=== PATIENT | female | born 1940 | race Caucasian/White ===

== ENCOUNTER 2017-09-10 11:12 | Emergency (ER) | payer MEDICARE, OTHER ==
[~2017-09-10] VITALS: Ht 157.5 cm; Wt 80.7 kg
[2017-09-10 11:45] LABS: URINE BILIRUBIN NEGATIVE (Negative); URINE BLOOD TRACE (Negative); URINE CLARITY CLEAR; URINE COLOR YELLOW; URINE GLUCOSE-RANDOM NEGATIVE (Negative); URINE KETONES NEGATIVE (Negative); URINE LEUKOCYTES-REFLEX NEGATIVE (Negative); URINE NITRITE-REFLEX NEGATIVE (Negative); URINE PROTEIN NEGATIVE (Negative); URINE SPECIFIC GRAVITY 1.015 (1.005-1.030); URINE UROBILINOGEN 0.2 E.U./dl (0.2-1.0)
[2017-09-10 11:53] LABS: ABSOLUTE BASOPHILS 0.1 thou/uL (0.0-0.2); ABSOLUTE EOSINOPHILS 0.2 thou/uL (0.0-0.7); ABSOLUTE LYMPHOCYTES 2.2 thou/uL (0.8-5.3); ABSOLUTE MONOCYTES 0.7 thou/uL (0.0-1.2); ABSOLUTE NEUTROPHILS 3.7 thou/uL (1.6-8.1); BASOPHILS 0.8 %; EOSINOPHILS 2.8 %; HEMATOCRIT 41.8 % (37.0-47.0); HEMOGLOBIN 14.1 gm/dL (12.0-15.0); LYMPHOCYTES 31.9 %; MCH 30.7 pg (26.0-34.0); MCHC 33.6 g/dL (28.0-37.0); MCV 91.4 fL (80.0-100.0); MONOCYTES 10.6 %; MPV 8.9 fl. (7.2-11.1); NUCLEATED RBCS 0 /100WBC; PLATELET COUNT* 242 thou/uL (150-400); POLYS 53.9 %; RBC 4.57 mil/uL (4.20-5.00); RDW-CV 13.7 % (10.5-14.5); WBC 6.9 thou/uL (4.0-11.0)
[2017-09-10 12:02] LABS: ANION GAP 1 mmol/L (7-16); BUN 18 mg/dL (7-18); CHLORIDE 107 mmol/L (98-107); CO2 30 mmol/L (21-32); CREATININE 0.7 mg/dL (0.6-1.3); GLUCOSE 95 mg/dL (70-99); POTASSIUM 3.9 mmol/L (3.5-5.1); SODIUM 138 mmol/L (136-145)
[2017-09-10 12:09] LABS: ALBUMIN 3.4 g/dL (3.4-5.0); ALKALINE PHOSPHATASE 78 U/L (46-116); LIPASE 229 U/L (73-393); SGOT 26 U/L (15-37); SGPT 36 U/L (30-65); TOTAL BILIRUBIN 0.4 mg/dL (<0.1-1.0); TOTAL PROTEIN 7.1 g/dL (6.4-8.2); TROPONIN-I LEVEL <0.06 ng/mL (<0.06)
[2017-09-10 13:36] VITALS: BP 115/94
--- NOTE | 2017-09-10 14:32 | EKG ---
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: Ashanti ROMAN : 1940 Requested By: Guzman Barker Order Number: [id number] MD: Luis Boateng Measurements Intervals [place] Rate: 65 P: 58 WV: 196 QRS: -58 QRSD: 95 T: 47 QT: 419 QTc: 436 Interpretive Statements Sinus rhythm RSR' in V1 or V2, right VCD or RVH Inferior infarct, old Consider anterior infarct Compared to ECG 10/18/2005 07:46:14 Right ventricular hypertrophy now present RSR' in V1 or V2 now present Myocardial infarct finding now present Electronically Signed On 09-10-2017 14:32:37 CDT by Luis Boateng [email or web address] <ELECTRONICALLY SIGNED> By: Luis Boateng MD, FACC 09/10/17 1432 1154 1154 Luis Boateng MD, FAC /EPI
== END 2017-09-10 13:43 | disposition home or self-care (01) ==
LOC: M.ERS 11:12
PROVIDERS: Family Medicine
DX: R10.31 Right lower quadrant pain (principal); J45.909 Unspecified asthma, uncomplicated; E03.9 Hypothyroidism, unspecified; M81.0 Age-related osteoporosis without current pathological fracture; Z88.6 Allergy status to analgesic agent; Z88.1 Allergy status to other antibiotic agents; Z88.0 Allergy status to penicillin

== ENCOUNTER → 2020-02-04 | Outpatient (CLI) | payer MEDICARE, OTHER ==
--- NOTE | 2020-02-11 11:07 | PATH ---
[address] [address] PATHOLOGY RPT PROCEDURE Name: ROMANA JHA Tesha Room: [facility]#: [id number] Admission: 02/04/20 Date of : 40 Discharge: Report #: [id number] Path Case #: [id number] [facility] Accession Number: [id number] . 01 Material submitted: . PART A: breast - RIGHT AXILLARY NODE. Modifiers: right PART B: breast - RIGHT BREAST MASS. Modifiers: right . 01 Clinical history: . US MAMMOTOME BX BILATERAL BREAST ABNORMAL MAMMO A. 1.47 x 1.76 X 1.74 CM B. 3.55 X 2.79 X 1.44 CM, 9:00, 8-9 CM FROM NIPPLE. . 02 Diagnosis: A. 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 SEE COMMENT. . B. Right breast mass, 9:00, 8-9 cm from nipple, ultrasound-guided Mammotome biopsy: - INFILTRATING DUCTAL ADENOCARCINOMA, HIGH GRADE, SPANNING AT LEAST 15 MM. SEE COMMENT. (BRUNO:abena; 02/05/2020) . . Surgical Pathology Cancer Case Summary . Protocol posting date: April 2019 . INVASIVE CARCINOMA OF THE BREAST: Biopsy . Procedure ___ Other (specify): Ultrasound-guided Mammotome biopsy . Specimen Laterality ___ Right . Tumor Site ___ Clock position: 9 o'clock ___ Distance from nipple: 8-9 cm . Tumor Size ___ Greatest dimension of largest invasive focus >1 mm: at least 15 mm . Histologic Type ___ Invasive carcinoma of no special type (ductal, not otherwise specified) . Histologic Grade (Edmund Histologic Score) [place] [address] PATHOLOGY RPT PROCEDURE Name: ROMANA JHA Room: [facility]#: [id number] Admission: 02/04/20 Date of : 40 Discharge: Report #: [id number] Path Case #: [id number] . Glandular (Acinar)/Tubular Differentiation ___ Score 3 (<10% of tumor area forming glandular/tubular structures) . Nuclear Pleomorphism ___ Score 3 (vesicular nuclei, often with prominent nucleoli, exhibiting marked variation in size and shape, occasionally with very large and bizarre forms) . Mitotic Rate ___ Score 3 . Overall Grade ___ Grade 3 (scores of 8 or 9) . Ductal Carcinoma In Situ (DCIS) ___ Cannot be excluded . Lymphovascular Invasion ___ Indeterminate . Microcalcifications ___ Not identified . Ancillary Studies: Biomarker Studies ___ Pending on block B1 QMS 02/05/2020 1433 Local . 02 Comment: In specimen A, there is no definite evidence of extranodal extension by the malignancy. In specimen B, greater than 95% of the submitted tissues are involved by malignancy. Breast tumor profile studies are pending on block B1 and will be the subject of an addendum report. Specimens A and B reviewed with Dr. Lucien Allen, who agrees with the diagnoses. Daija (acting [facility] Breast Navigator) notified at approximately 11:30 on 02/05/2020. (BRUNO:abena; 02/05/2020) . 02 Addendum: . Special studies report received from [facility], [address] [place] [address], [address], [place], [address], on case [id number], labeled with their number [id number], dated 02/10/2020. . Breast/Prognostic Marker Analysis . Specimen Site: Right Breast, Mass, 9:00, Biopsy, Breast Cancer Specimen ID #: [id number] [place] [address] PATHOLOGY RPT PROCEDURE Name: ROMANA JHA Room: [facility] Col[place]#: [id number] Admission: 02/04/20 Date of : 40 Discharge: Report #: [id number] Path Case #: [id number] . ER (Estrogen Receptor) Absent/Negative Percent: 0.00 Analysis: Manual Comments: Comment: Internal and external controls are appropriately positive. . OH (Progesterone Receptor) Absent/Negative Percent: 0.00 Analysis: Manual Comments: Comment: Internal and external controls are appropriately positive. . HER2 Not Over-Expressed Score: 1+ Analysis: Manual . Ki-67 High Proliferation Percent: 65.00% Analysis: Manual . Time to Fixation (Cold Ischemic Time): 9 minutes Duration of Fixation: 10 hours 34 minutes Type of Fixative: 10% Neutral Buffered Formalin . Comments: ER/PgR testing at [facility]. is performed in compliance with the ASCO/CAP Clinical Practice Guidelines. If the result for ER is less than 1% it is reported as Negative; if the ER result is 1-10% it is reported as Low Positive; if the ER result is greater than 10% it is reported as Positive. If the result for PgR is less than 1% it is reported as Negative; if the PgR result is equal to or greater than 1%, it is reported as Positive. . REFERENCE: Jenelle KH, Jessica GARCIA, Venu M, et al. Estrogen and progesterone receptor testing in breast cancer. ASCO/CAP guideline update. Arch Pathol Lab Med. 2020; 144:545-563. . Whole slide image capture is performed using SitScape (Corpsolv) platform. Image analysis, if ordered, is performed using Cellartis software. . at [facility]. [place] [address] PATHOLOGY RPT PROCEDURE Name: ROMANA JHA Room: [facility]#: [id number] Admission: 02/04/20 Date of : 40 Discharge: Report #: [id number] Path Case #: [id number] Surgical Pathologist . Methodology The HER2 Receptor protein expression is analyzed using the [place] HER2 rabbit monoclonal antibody (clone 4B5). This assay is used for diagnostic determination of the HER2 protein over-expression in paraffin embedded, formalin fixed breast cancer tissue on the [place] Benchmark. The specimen is processed using a secondary antibody-HRP conjugate detection system. The membrane staining of the tumor is determined either by manual score or image analysis. This antibody is intended for in vitro diagnostic use. The score is reported as 0, 1+, 2+, or 3+. This test is used for clinical purposes. . A rabbit monoclonal antibody (clone SP1) that recognized the Estrogen Receptor is used to perform immunohistochemistry on routinely fixed (formalin) paraffin embedded tissue on the [place] Benchmark. The specimen is processed using a secondary antibody-HRP conjugate detection system. The percentage of stained tumor nuclei is determined either manually or by image analysis. This test is intended for in vitro diagnostic use. This test is used for clinical purposes. . A rabbit monoclonal antibody (clone 1E2) that recognized the Progesterone Receptor is used to perform immunohistochemistry on routinely fixed (formalin) paraffin embedded tissue on the [place] Benchmark. The specimen is processed using a secondary antibody-HRP conjugate detection system. The percentage of stained tumor nuclei is determined either manually or by image analysis. This test is intended for in vitro diagnostic use. This test is used for clinical purposes. . A rabbit monoclonal antibody (clone 30-9) that recognized Ki67 is used to perform immunohistochemistry on routinely fixed (formalin) paraffin embedded tissue on the [place] Benchmark. The specimen is processed using a secondary antibody-HRP conjugate detection system. The percentage of stained tumor nuclei is determined either manually or by image analysis. This test is intended for in vitro diagnostic use. This test is used for clinical purposes. . Intended Use: This antibody is intended for in vitro diagnostic (IVD) use. HER2 (4B5) is a rabbit monoclonal antibody intended for the semi-quantitative detection of HER2 antigen in sections of formalin-fixed, paraffin embedded normal and neoplastic tissue. . This antibody is intended for in vitro diagnostic (IVD) use. Estrogen Receptor (ER) (SP1) is a rabbit monoclonal antibody (IgG) that is intended for the qualitative detection of estrogen receptor (ER) antigen in sections of formalin-fixed, paraffin-embedded tissue. ER is a rabbit monoclonal antibody that recognizes human estrogen [place] [address] PATHOLOGY RPT PROCEDURE Name: ROMANA JHA Room: [facility]#: [id number] Admission: 02/04/20 Date of : 40 Discharge: Report #: [id number] Path Case #: [id number] This antibody is intended for in vitro diagnostic (IVD) use. Progesterone Receptor (OH) (1E2) is a rabbit monoclonal antibody (IgG) that is intended for the qualitative detection of progesterone receptor (OH) antigen in sections of formalin fixed, paraffin embedded tissue. OH is a rabbit monoclonal antibody that recognizes the A and B forms of the human progesterone receptor. . This antibody is intended for in vitro diagnostic (IVD) use. Ki-67 (30-9) is a rabbit monoclonal antibody (IgG) directed against C-terminal portion of Ki-67 antigen. Staining for Ki-67 can be used to aid in assessing the proliferative activity of normal and neoplastic tissue. Ki-67 is a nuclear protein expressed in proliferating cells. During the cell cycle, the Ki-67 antigen is present in the G1, S, G2 and M phase but is absent in the G0 (quiescent phase). . . Disclaimer: This Test was performed by [facility]. at [facility], [address]. . [facility] is a business unit of [facility]. a wholly-owned subsidiary of [facility] [place]. . This assay has not been validated on decalcified tissues. Results should be interpreted with caution if this specimen was decalcified given the likelihood of false negativity on decalcified specimens. . Any image(s) that accompany this report is/are a manufacturer's service representative image(s) only and should not be used to render a diagnosis. . This interpretation is contingent on the specimen and the clinical information received. . For any special tests/stains performed, known positive cells or tissues are tested with each marker and examined to ensure positivity. Positive and negative internal controls, if present, react appropriately. . This analysis is an adjunct to the evaluation of the referring physician and does not represent a final diagnosis. . The immunohistochemistry tests performed at [facility]. were validated on tissue fixed in 10% neutral buffered formalin. The performance characteristics of the tests performed on tissue processed in other fixatives is not known. . HER2 testing at [facility] [employer] is performed in compliance with the 2018 updated ASCO/CAP Clinical Practice Guideline Focused Update. If the result is EQUIVOCAL (2+), it must be confirmed by [address] [address] PATHOLOGY RPT PROCEDURE Name: ROMANA JHA Room: [facility]#: [id number] Admission: 02/04/20 Date of : 40 Discharge: Report #: [id number] Path Case #: [id number] an alternative assay such as FISH or Dual STEVEN. REF: Crystal OJEDA, ISIDRA Lopez et al: Human Epidermal Growth Factor Receptor 2 Testing in Breast Cancer: ASCO/CAP Clinical Practice Guideline Focused Update. J Clin Oncol 36:4077-8312, 2018. . HER2 and ER/OH ASCO/CAP guidelines require fixation in neutral buffered formalin for a minimum of 6 and a maximum of 72 hours. Fixation times less than 6 hours may not adequately preserve cell proteins. Fixation times longer than 72 hours may cause excess cross-linking of proteins reducing the antigen available for staining. Either scenario can cause reduced staining; hence false negative results are possible and should be considered for these situations if the HER2 IHC score is less than 3+ or ER or OH is negative (no staining or <1% positive). It is recommended that specimens fixed longer than 72 hours with HER2 IHC scores less than 3+ be confirmed by HER2 FISH or Dual STEVEN. The time from biopsy/excision to fixation in formalin (cold ischemic time) must be less than 1 hour. Time to fixation (cold ischemic time) greater than 1 hour should be interpreted with caution. HER2 testing, mainly HER2 by FISH, is particularly vulnerable since excessive cold ischemic time results in preferential loss of HER2 probe signals that may lead to false negative results. . SCORE STAINING PATTERN IN TUMOR CELLS INTERPRETATION RESULTS 0 No staining observed or incomplete, faint membrane staining in less than or equal to 10% of tumor cells. Negative 1+ Incomplete, faint membrane staining in greater than 10% of tumor cells. Negative 2+ Weak to moderate complete membrane staining observed in greater than 10% of tumor cells. Equivocal* *Must be confirmed by alternative assay (IHC/FISH/Dual STEVEN) 3+ Intense, complete membrane staining in greater than 10% of tumor cells. Positive . A complete copy of the report is on file. . Professional and Technical services performed by [facility]. at [address], [place] [address]. . (BRUNO:merle 02/11/2020) . [place]/02/11/2020 Addendum Electronically Signed by Adrian Mcdonald MD, Pathologist . 02 [place] [address] PATHOLOGY RPT PROCEDURE Name: ROMANA JHA Room: [facility]#: [id number] Admission: 02/04/20 Date of : 40 Discharge: Report #: [id number] Path Case #: [id number] Electronically signed: . Adrian Mcdonald MD, Pathologist NPI- [id number] . 01 Gross description: . A. The specimen is received in formalin, labeled "Romana Jha, right axillary node". Received is a single needle core of pale holley soft tissue measuring 1.3 cm in length by 0.1 cm in diameter. The specimen is submitted entirely in cassette A1. . B. The specimen is received in formalin, labeled "Romana Jha, right breast 9:00 8-9 cm from nipple". Received are multiple needle cores of fibrofatty tissue measuring 2.0 x 0.8 x 0.2 cm in aggregate dimensions. The specimen is submitted entirely in cassettes B1 through B3. The cold ischemic time is 9 minutes. The total formalin fixation time is 10 hours and 34 minutes. (CAA; 02/04/2020) QAC/QAC 02/04/2020 1609 [facility] . 02 Pathologist provided ICD-10: C77.3, C50.911 . 02 CPT . 356501, 149843 Specimen Comment: A courtesy copy of this report has been sent to [phone] Specimen Comment: Report sent to Performed at: [address], [place], [place] [address] MD Arnel Duong MD Phone: [phone] Performed at: [facility] [address], [place], [place] [id number] MD Adrian Mcdonald MD Phone: [phone]
== END | disposition home or self-care (01) ==
LOC: M.ULTRA 09:28
PROVIDERS: ATTEND Surgery
DX: C50.411 Malignant neoplasm of upper-outer quadrant of right female breast (principal); C77.3 Secondary and unspecified malignant neoplasm of axilla and upper limb lymph nodes; R59.0 Localized enlarged lymph nodes; Z88.0 Allergy status to penicillin; Z88.8 Allergy status to other drugs, medicaments and biological substances

== ENCOUNTER → 2020-02-08 | Outpatient (CLI) | payer MEDICARE, OTHER ==
[2020-02-08 10:48] LABS: CREATININE 0.9 mg/dL (0.6-1.3)
== END ==
LOC: M.MRI 10:17 → M.LAB 10:30 → M.MRI 11:30
PROVIDERS: ATTEND Family Medicine
DX: N63.11 Unspecified lump in the right breast, upper outer quadrant (principal); N64.89 Other specified disorders of breast

== ENCOUNTER → 2020-02-15 | Day surgery (SDC) | payer MEDICARE, OTHER ==
[2020-02-15 08:24] LABS: HEMATOCRIT 42.6 % (37.0-47.0); HEMOGLOBIN 14.4 gm/dL (12.0-15.0); MCH 30.4 pg (26.0-34.0); MCHC 33.7 g/dL (28.0-37.0); MCV 90.3 fL (80.0-100.0); RBC 4.72 mil/uL (4.20-5.00); RDW-CV 13.2 % (10.5-14.5); WBC 7.6 thou/uL (4.0-11.0)
[2020-02-15 08:28] LABS: CALCIUM 8.7 mg/dL (8.5-10.1); CREATININE 0.8 mg/dL (0.6-1.3); POTASSIUM 3.8 mmol/L (3.5-5.1)
--- NOTE | 2020-02-15 15:15 | EKG ---
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: : 1940 Requested By: Kelsey Alfaro Order Number: [id number] Reading MD: Roel Calderon Measurements Intervals [place] Rate: 59 P: 55 [place]: 196 QRS: -57 QRSD: 89 T: 27 QT: 430 QTc: 426 Interpretive Statements Sinus rhythm Left anterior fascicular block Borderline T wave abnormalities Compared to ECG 09/10/2017 11:54:11 Left anterior fascicular block persists T-wave abnormality now present Right ventricular hypertrophy no longer present Myocardial infarct finding no longer present Electronically Signed On 02-15-2020 15:15:28 DEFENSIVE DRIVING INSTRUCTOR by Roel Calderon [email or web address] <ELECTRONICALLY SIGNED> By: Roel Calderon MD, FACC 02/15/20 1515 5 5 Roel Calderon MD, FAC /EPI
--- NOTE | 2020-02-16 07:22 | OP ---
[address] [address] OPERATIVE REPORT Name: VERONICA JHA Room: [facility]#: [id number] Admission: 02/15/20 Attend Phys: Kelsey Alfaro DO Discharge: Date of : 40 Report #: [id number] THIS REPORT FOR: cc: Tanner Borges MD, Tuongvan T. 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 FINDINGS: Right internal jugular anatomy was normal. SURGEON: Kelsey Alfaro DO COSURGEON: Jairo Mallory DO, PGY-1. ETHYLBENZENE CRACKING SUPERVISOR: None. PROCEDURE PERFORMED: Left internal jugular ultrasound and fluoroscopy-guided chemo port placement with surgeon interpretation of images. ANESTHESIA: LMA and local. ESTIMATED BLOOD LOSS: 2 mL. DRAINS: None. SPECIMENS: None. COMPLICATIONS: None. CONDITION: Stable. DISPOSITION: PACU to home. Fluoroscopy time was 17 seconds. HISTORY OF PRESENT ILLNESS: The patient is a very pleasant 79-year-old female, who presented to my office last week with a change in her right breast. 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 She will require chemo. She was then consented for chemo port placement. Risks discussed included bleeding, infection, pain, scar formation, injury to lung, need for [facility] [address] [place] [address] OPERATIVE REPORT Name: VERONICA JHA Room: [facility]#: [id number] Admission: 02/15/20 Attend Phys: Kelsey Alfaro DO Discharge: Date of : 40 Report #: [id number] explantation, and risks of general anesthesia. The patient understood these risks and elected to proceed. DESCRIPTION OF PROCEDURE: The patient was brought to the operating room. She was laid supine on the operating room table. SCDs were placed on bilateral lower extremities. Ancef was given in the perioperative period. General LMA anesthesia was induced by Anesthesia without difficulty. Timeout was performed to verify the patient and procedure. Left neck and chest were prepped and draped in the standard sterile fashion. Ultrasound was used to visualize the left internal jugular; it was widely patent. A 10 mL of 0.5% Marcaine mixed with 1% lidocaine were injected over the area of the left IJ. Then, utilizing ultrasound for guidance, the left internal jugular was accessed with one pass of the needle. Wire was passed without difficulty. Needle was removed. Ultrasound was again used to verify that the wire was in the left internal jugular. Ultrasound was then handed off. Fluoroscopy was brought onto the field and the wire was confirmed to be in the superior vena cava. A 15 blade was then used to create a pocket in the left infraclavicular area. Cautery was used for hemostasis. Then, using a combination of blunt and cautery dissection, the pocket was made large enough for the subcutaneous port placement. An 11 blade was utilized to make a skin oscar at the site of the wire insertion. The dilator and the breakaway catheter were then introduced over the wire. The wire and the dilator were removed. Chemo port tubing was then introduced through the breakaway catheter without difficulty. Breakaway catheter was removed. Fluoroscopy was returned onto the field. Tubing was confirmed to be in the superior vena cava. The tubing was withdrawn until the tip was clearly visualized at the atriocaval junction. Chemo port tubing was then tunneled into our previously created subcutaneous pocket. Tubing was trimmed to the appropriate length and was placed onto the subcutaneous port without difficulty. The port was accessed and we had excellent draw and flush. The tubing and the port were vigorously irrigated with injectable saline. The port was then locked with 3 mL of premixed heparin solution. The port was then sutured into place on the right and left upper corners with a 2-0 Prolene stitch. Subcutaneous pocket was then closed in a layered fashion using deep and superficial stitches of 3-0 Vicryl in an inverted interrupted fashion. Skin wound was closed with a running 4-0 Monocryl. Skin was then cleansed and the skin wounds at the neck and the left chest were covered with Dermabond. The patient was then allowed to awaken from anesthesia, was extubated and transported to the recovery room with no further difficulties. Fluoro time was 17 seconds. Chest x-ray will be followed in the recovery room. <ELECTRONICALLY SIGNED> By: Kelsey Alfaro DO 02/16/20 0722 1041 1054Cvivian Alfaro DO /wendy
== END | disposition home or self-care (01) ==
LOC: M.SUR 06:35
PROVIDERS: ATTEND Surgery
DX: Z45.2 Encounter for adjustment and management of vascular access device (principal); C50.911 Malignant neoplasm of unspecified site of right female breast; J45.909 Unspecified asthma, uncomplicated; E03.9 Hypothyroidism, unspecified; M81.0 Age-related osteoporosis without current pathological fracture; Z98.890 Other specified postprocedural states; Z79.899 Other long term (current) drug therapy; Z88.0 Allergy status to penicillin; Z88.8 Allergy status to other drugs, medicaments and biological substances

== ENCOUNTER → 2020-02-16 | Outpatient (CLI) | payer MEDICARE, OTHER ==
--- NOTE | 2020-02-16 16:44 | 2DMMODE ---
[place] [address] 2 D/M-MODE ECHOCARDIOGRAM Name: VERONICA JHA Room: [employer]#: [id number] Admission: 02/16/20 Attend Phys: Blanka Morrison MD Discharge: Date of : 40 Date of Service: 02/16/20 1644 Report #: [id number] THIS REPORT FOR: cc: Tanner Borges MD, Tuongvan T. MD Holkins, John M. MD [facility] ~ APPROVED REPORT Study performed: 02/16/2020 12:37:03 EXAM: Comprehensive 2D, Doppler, and color-flow Echocardiogram Patient Location: Out-Patient BSA: 1.79 HR: 72 bpm BP: 140/88 mmHg Other Information Study Quality: Fair Indications Chemo 2D Dimensions IVSd: 10.79 (7-11mm) LVOT Diam: 19.55 (18-24mm) LVDd: 40.17 mm PWd: 9.71 (7-11mm) Ascending Ao: 28.92 (22-36mm) LVDs: 23.39 (25-40mm) Aortic Root: 25.25 mm Volumes Left Atrial Volume (Systole) LA ESV Index: 15.50 mL/m2 Aortic Valve AoV Peak Albert.: 1.75 m/s AO Peak Gr.: 12.22 mmHg LVOT Max P.37 mmHg AO Mean Gr.: 7.68 mmHg LVOT Mean P.80 mmHg LVOT Max V: 1.53 m/s AO V2 VTI: 44.61 cm LVOT Mean V: 1.01 m/s LEONORA (VTI): 2.41 cm2 LVOT V1 VTI: 35.84 cm Mitral Valve E/A Ratio: 0.75 [place] [address] 2 D/M-MODE ECHOCARDIOGRAM Name: VERONICA JHA Room: [facility]#: [id number] Admission: 02/16/20 Attend Phys: Blanka Morrison MD Discharge: Date of : 40 Date of Service: 02/16/20 1644 Report #: [id number] MV Decel. Time: 250.70 ms MV E Max Albert.: 0.72 m/s MV PHT: 72.70 ms MVA (PHT): 3.03 cm2 TDI E/Lateral E': 12.00 E/Medial E': 10.29 Medial E' Albert.: 0.07 m/s Lateral E' Albert.: 0.06 m/s Pulmonary Valve PV Peak Albert.: 0.98 m/s PV Peak Gr.: 3.82 mmHg Tricuspid Valve RAP Estimate: 5.00 mmHg TR Peak Gr.: 17.99 mmHg RVSP: 22.99 mmHg PA Pressure: 22.99 mmHg Left Ventricle The left ventricle is normal size. There is normal LV segmental wall motion. There is normal left ventricular wall thickness. Left ventricular systolic function is normal. The left ventricular ejection fraction is within the normal range. LVEF is 55-60%. Grade I - abnormal relaxation pattern. Right Ventricle The right ventricle is normal size. The right ventricular systolic function is normal. Atria The left atrium size is normal. The right atrium size is normal. Aortic Valve The aortic valve is normal in structure. No aortic regurgitation is present. There is no aortic valvular stenosis. Mitral Valve Mild mitral annular calcification. There is no mitral valve regurgitation noted. No evidence of mitral valve stenosis. Tricuspid Valve The tricuspid valve is normal in structure. Mild tricuspid [place]itation[place] [address] 2 D/M-MODE ECHOCARDIOGRAM Name: VERONICA JHA Room: [facility] [employer]#: [id number] Admission: 02/16/20 Attend Phys: Blanka Morrison MD Discharge: Date of : 40 Date of Service: 02/16/20 1644 Report #: [id number] The pulmonary valve is normal in structure. There is no pulmonic valvular regurgitation. Great Vessels The aortic root is normal in size. IVC is normal in size and collapses >50% with inspiration. Pericardium There is no pericardial effusion. <Conclusion> The left ventricle is normal size. There is normal left ventricular wall thickness. Left ventricular systolic function is normal. The left ventricular ejection fraction is within the normal range. LVEF is 55-60%. Grade I - abnormal relaxation pattern. The right ventricle is normal size. The left atrium size is normal. The aortic valve is normal in structure. Mild mitral annular calcification. There is no mitral valve regurgitation noted. No evidence of mitral valve stenosis. The tricuspid valve is normal in structure. Mild tricuspid regurgitation. IVC is normal in size and collapses >50% with inspiration. There is no pericardial effusion. There is normal LV segmental wall motion. <ELECTRONICALLY SIGNED> By: Roel Calderon MD, FACC 02/16/20 1644 43 43 Roel Calderon MD, FACC /INF
== END ==
LOC: M.CRD 12:30
PROVIDERS: ATTEND Internal Medicine Hematology & Oncology
DX: I08.1 Rheumatic disorders of both mitral and tricuspid valves (principal)

== ENCOUNTER 2020-08-16 04:26 | Observation (INO) | payer MEDICARE, OTHER ==
[~2020-08-16] VITALS: Ht 152.4 cm; Wt 71.7 kg
--- NOTE | ~2020-08-16 | H ---
[address] [address] HISTORY AND PHYSICAL Name: VERONICA JHA Tesha Room: [address] Sushant Murdock#: [id number] Admission: 08/16/20 Attend Phys: Kelsey Alfaro DO Discharge: 08/17/20 Date of : 40 Report #: [id number] THIS REPORT FOR: cc: Tanner Borges MD, Tuongvan T. MD [facility],Medical Records Staff ~ Please refer to the History and Physical performed in the physician's office. By: 1450Medical Records Staff [facility] /ROSALIO
[~2020-08-16 04:26] MED LIST: NOHOMEMEDICATIONS PO
[2020-08-16 09:04] LABS: HEMATOCRIT 36.1 % (37.0-47.0); HEMOGLOBIN 12.1 gm/dL (12.0-15.0); MCH 31.1 pg (26.0-34.0); MCHC 33.5 g/dL (28.0-37.0); MCV 92.9 fL (80.0-100.0); MPV 7.7 fl. (7.2-11.1); RBC 3.89 mil/uL (4.20-5.00); RDW-CV 15.7 % (10.5-14.5)
[2020-08-16 09:11] LABS: CREATININE 0.6 mg/dL (0.6-1.3); POTASSIUM 3.7 mmol/L (3.5-5.1)
--- NOTE | 2020-08-16 15:30 | EKG ---
[place] [address] ELECTROCARDIOGRAM REPORT Name: VERONICA JHA Room: [address]R.#: [id number] Admission: 08/16/20 Attend Phys: Kelsey Alfaro, Discharge: Date of : 40 Date of Service: 08/16/20 0945 Report #: [id number] THIS REPORT FOR: //name// [facility] Test Date: 2020-08-16 Test Time: 09:45:11 Pat Name: VERONICA JHA Department: Room: [place] [address] Gender: F Stitching Department Supervisor: ALEX : 1940 Requested By: Kelsey Alfaro Order Number: [id number] Reading MD: Shun Chun Measurements Intervals [place] Rate: 63 P: 44 NV: 198 QRS: -63 QRSD: 84 T: 36 QT: 416 QTc: 426 Interpretive Statements Sinus rhythm Abnormal R-wave progression, late transition Inferior infarct, old Compared to ECG 02/15/2020 09:16:04 Myocardial infarct finding now present Left anterior fascicular block no longer present T-wave abnormality no longer present Electronically Signed On 08-16-2020 15:30:14 CDT by Shun Chun [email or web address] <ELECTRONICALLY SIGNED> By: Shun Chun MD, [facility] 08/16/20 1530 Shun Chun MD, [facility] /EPI
[2020-08-16 19:18] VITALS: BP 153/81
[2020-08-17 00:35] VITALS: BP 129/63
[2020-08-17 04:26] VITALS: BP 127/57
[2020-08-17 07:50] VITALS: BP 124/53
[2020-08-17] MEDS ORDERED: TRAMADOL 50 MG50 MG PO (09:24)
--- NOTE | 2020-08-17 11:47 | OP ---
[address] [address] OPERATIVE REPORT Name: VERONICA JHA Room: [address] M.R.#: [id number] Admission: 08/16/20 Attend Phys: Kelsey Alfaro DO Discharge: Date of : 40 Report #: [id number] THIS REPORT FOR: cc: Tanner Borges MD, Tuongvan T. MD Brock, Christie M. DO ~ DOC #: [id number] cc: Tanner Borges MD Dictated by Elier Apple DO DATE OF SURGERY: 08/16/2020 PREOPERATIVE DIAGNOSIS: Right breast inflammatory breast cancer, status post neoadjuvant chemotherapy. POSTOPERATIVE DIAGNOSIS: Right breast inflammatory breast cancer, status post neoadjuvant chemotherapy. FINDINGS: Right breast Nuclear Medicine injection with highest uptake at the nipple of 4400. There was no uptake in the axilla, supraclavicular or sternum. Blue dye terminated in a knot of firm scar tissue just proximal to the axilla. No sentinel lymph node could be identified. SURGEON: Kelsey Alfaro DO CO-SURGEON: Elier Apple, PGY5 MACHINIST SUPERVISOR: Loreto Schwartz PGY3 OPERATION PERFORMED: Bilateral simple mastectomy and right axillary lymph node dissection. ANESTHESIA: General, local and erector spinae block by Anesthesia. ESTIMATED BLOOD LOSS: 50 mL. SPECIMEN: Right breast, left breast, portion of right breast axillary tail and right axillary lymph node dissection. COMPLICATIONS: None. PATIENT CONDITION: Stable. DISPOSITION: PACU to the floor. [address] [address] OPERATIVE REPORT Name: VERONICA JHA Room: [address] Sushant Murdock#: [id number] Admission: 08/16/20 Attend Phys: Kelsey Alfaro DO Discharge: Date of : 40 Report #: [id number] INDICATIONS: The patient is a 79-year-old female who initially presented with an enlarged inflamed, erythematous right breast. She was found to have inflammatory breast cancer. She had a port placed and underwent neoadjuvant chemotherapy with an excellent response. She did have incidental finding of a left breast mass that was now worked up. The patient was provided with her surgical options for the treatment of her breast cancer and decided to proceed with a bilateral mastectomy. She was informed of the risks and benefits of bilateral mastectomy with sentinel lymph node dissection with risks including, but not limited to need for full axillary dissection, bleeding, infection, hematoma formation, need for reoperation. She understood these risks and decided to proceed with surgery. DESCRIPTION OF PROCEDURE: After informed consent was obtained, the patient was brought to the operating room and placed in the supine position. SCDs were on and running. Preoperative antibiotics were given prior to the operating room. The patient went to Nuclear Medicine for radionucleotide injection. Prior to prepping and draping, Lymphazurin blue was injected at 4 quadrants of the right nipple. The patient was then prepped and draped in a usual sterile fashion. A surgical pause was held to confirm proper patient and procedure. We began on the left side after marking all relevant anatomy, an elliptical incision to include the entire breast on the left was planned and marked, injected with local anesthetic. A 10 blade was used to make the elliptical incision. Dissection was carried through the subcutaneous tissue circumferentially. The superior aspect of the breast tissue was dissected up to the clavicle and inferiorly down to the inframammary fold. Once this was completely dissected down to pectoralis fascia starting at the medial aspect, the breast tissue was lifted off of the pectoral fascia which was quite thin. This was dissected in a medial to lateral fashion until the tail of the breast was reached. Cautery was used for hemostasis along the way. The tail of the breast was transected at a suitable site, the specimen was in its entirety and was marked with a short stitch superior and a long stitch lateral. This was handed off as specimen. A 19-Greenlandic fluted KIRK drain was placed through the lateral and inferior aspects of the flap. Cautery was used for hemostasis. A 10 mL of Surgiflo was injected into the incision. The wound was then closed in layered fashion using multiple 3-0 Vicryls and a running 4-0 Monocryl. The wound was cleansed and dressed with Dermabond. We then turned our attention towards the right side. This was carried out in a similar fashion after the landmarks and the incision site was marked and symmetrical. A 10 blade was used to make an elliptical skin incision. Dissection was carried through the subcutaneous tissue using cautery. Cautery was then used to circumferentially dissect the breast tissue down to the pectoral fascia. The superior margin was up to the clavicle, inferiorly. We dissected down to the inframammary fold. Once down to the pectoral fascia, the breast was reflected off of the pectoralis in a medial to lateral fashion. On the lateral aspect of the right breast, there was some firm fibrous tissue towards the axilla that was difficult to dissect through. There was a [address] [address] OPERATIVE REPORT Name: VERONICA JHA Room: [address] Sushant Murdock#: [id number] Admission: 08/16/20 Attend Phys: Kelsey Alfaro DO Discharge: Date of : 40 Report #: [id number] deal of blue dye in this area and there did not appear to be any blue dye. Distal to this area of knotting, the breast tissue once completely dissected free from the pectoral fascia was transected at the tail of the breast. The right breast was marked with short stitch superior and long stitch lateral. This was handed off as specimen. There was a small amount of additional breast tissue in the axilla that was grasped and transected using cautery. This was distal to that knotting of tissue. This was again marked short stitch superior, long stitch lateral and this was handed off, irrigated. The Neoprobe was used and prior to beginning of dissection at the right side, the maximum uptake at the nipple was 4400. The right axilla was explored with a Neoprobe through the mastectomy incision; however, there was no significant uptake anywhere in the axilla. The specimen was also inspected and there did not appear to be any significant uptake in the specimen. The pectoralis, the sternum and the supraclavicular regions were all inspected with the Neoprobe and no significant uptake was identified. We suspected that the tracer had ceased in the same location that the blue tracer did not seem to pass perhaps due to her neoadjuvant chemotherapy, because no additional blue dye or tracer could be identified in the axilla. We were unable to perform a sentinel lymph node dissection and proceeded to perform a complete right axillary lymph node dissection. This was performed by dissecting through the clavipectoral fascia with blunt dissection. The axillary fat pad was divided until we superiorly used blunt dissection to reach the axillary vein. We used this as the superiormost aspect of our dissection. We grasped the axillary tissue with an Allis and transected the superior margin just inferior to the subclavian vein with a combination of blunt dissection and cautery. We dissected the axillary kristie tissue away from the chest wall and reflected inferiorly. There were several large branches of venous drainage that were isolated and tied for hemostasis. Once the axillary kristie tissue was reflected off of the chest wall, the lateral margin to the subcutaneous tissue was identified and transected using cautery. The long thoracic nerve was identified and spared, it was not injured. Once the final pedicle of axillary tissue was identified, it was transected using cautery. The axilla was hemostatic. The superior most margin of the axillary tissue was marked with a short stitch superior and the lateral tissue was marked with a long stitch lateral. This was handed off as specimen. The right incision of the mastectomy and axillary lymph node dissection was thoroughly irrigated and suctioned, it was hemostatic. A 10 mL of Surgiflo was then injected into the incision. The incision was then closed in a layered fashion using 3-0 Vicryl and 4-0 Monocryl after a right-sided 19-Greenlandic KIRK fluted drain was placed through the inferior flap. Once this was completely cleansed and dressed with Dermabond, the patient was emerged from anesthesia. The patient was placed into a surgical bra with fluffs and ABDs bilaterally. Her LMA was removed. She was emerged from anesthesia and transferred to the PACU in stable condition. All counts were correct. [address] [address] OPERATIVE REPORT Name: VERONICA JHA Room: [address] Sushant M.R.#: [id number] Admission: 08/16/20 Attend Phys: Kelsey Alfaro DO Discharge: Date of : 40 Report #: [id number] DO JAYANT Grimaldo <ELECTRONICALLY SIGNED> By: Kelsey Alfaro DO 08/17/20 1147 1304 1344Cvivian Alfaro DO /nt
[2020-08-17 12:12] VITALS: BP 124/53
[2020-08-17 13:25] VITALS: BP 124/53
[2020-08-17 15:24] VITALS: BP 124/53
--- NOTE | 2020-08-19 14:07 | PATH ---
[address] [address] PATHOLOGY RPT PROCEDURE Name: ROMANA JHA Room: [address] Sushant Murdock#: [id number] Admission: 08/16/20 Date of : 40 Discharge: 08/17/20 Report #: [id number] Path Case #: [id number] [facility] Accession Number: [id number] . 01 Material submitted: . PART A: breast - LEFT BREAST TISSUE. Modifiers: left PART B: breast - RIGHT BREAST TISSUE. Modifiers: right PART C: axillary tail of breast - RIGHT AXILLARY TAIL. Modifiers: right PART D: axillary tail of breast - RIGHT AXILLARY LYMPH NODE DISSECTION. Modifiers: right . 01 Clinical history: . INFLAMATORY BREAST CANCER A-D. SHORT SUTURE SUPERIOR, LONG SUTURE LATERAL . 02 Diagnosis: A. Left breast tissue: - Benign breast including skin with usual ductal epithelial hyperplasia, duct ectasia and scattered luminal calcifications, negative for atypia. . B. Right breast tissue: - Benign breast including skin with multiple seborrheic keratosis, with nodular fibrosis associated with coarse calcifications, usual ductal epithelial hyperplasia, small radial scar, incidental hemangioma and scattered coarse luminal calcifications, negative for malignancy/atypia. See comment. . C. Right axillary tail: - Benign breast tissue with one fibrotic lymph node showing calcification (approximately 3 mm) and medial calcification of blood vessels, negative for atypia. . D. Right axillary lymph node dissection: - Twelve benign lymph nodes, several with nodular fibrosis (0/12). See comment. LBQ 08/19/2020 1318 Local . 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 Per review of Dr. Alfaro's operative report dated 08/17/2020, this patient had inflammatory breast cancer and neoadjuvant chemotherapy. A sclerotic lobule of breast tissue with associated coarse calcifications spanning 1 mm is seen in B4 near the black inked posterior margin near the lateral aspect suggests the site of prior neoplasia in the right breast. Multiple lymph [place] [address] PATHOLOGY RPT PROCEDURE Name: ROMANA JHA Tesha Room: [address] JEROMY Murdock#: [id number] Admission: 08/16/20 Date of : 40 Discharge: 08/17/20 Report #: [id number] Path Case #: [id number] nodular fibrosis with the largest fibrotic nodule in D5 suggesting prior kristie involvement. (BRUNO/db; 08/19/2020) . 02 Electronically signed: . Adrian Mcdonald MD, Pathologist NPI- [id number] . 01 Gross description: . A. Fixative: formalin Labeled: Left breast tissue short superior long lateral Weight: 682 gm Specimen received is an intact mastectomy Oriented: short superior and long lateral Dimensions: 21 cm superior to inferior, 22 cm lateral to medial and 6.5 cm superficial to deep Skin: holley-brown soft measuring 14 x 9.5 cm with a centrally placed 1.4 cm everted nipple . The specimen is inked as follows: Superior-Blue Inferior-Green Anterior-Skin surface/[place] Posterior/Deep-Black Lateral-Yellow Medial-Red . Sectioned from: lateral to medial Number of slices: 10 with slice 1 as lateral Lesion: none Lesion location: Slices N/A . Lesion to margins:N/A . Biopsy clip: none . Cut surface: fibrofatty, unremarkable . Dough Sheeter sections of specimen are submitted in 15 cassettes A1 shaved base of nipple A2 remainder of nipple perpendicularly sectioned A3-4 Random UOQ A5-6 Random LOQ A7-8 Random LIQ A9-10 Random UIQ . The specimen is removed from the patient at 1139 hours and placed in formalin at 1149 hours on Sunday, August 16, 2020. The specimen is removed from formalin at 11:30pm on August 17. [place] [address] PATHOLOGY RPT PROCEDURE Name: ROMANA JHA [address]: [address]#: [id number] Admission: 08/16/20 Date of : 40 Discharge: 08/17/20 Report #: [id number] Path Case #: [id number] formalin for greater than 6 hours and less than 72 hours. . B. Previous biopsy site at 9:00 8-9cm FN as per [facility] Fixative: formalin Labeled: Right breast tissue short superior long lateral Weight: 567 gm Specimen received is an intact mastectomy Oriented: short superior and long lateral Dimensions: 16 cm superior to inferior, 24 cm lateral to medial and 8.1 cm superficial to deep Skin: holley-brown soft measuring 16 x 8 cm with a centrally placed 1.3 cm everted nipple; remarkable also for soft brown papules ranging from 0.5-0.8cm . The specimen is inked as follows: Superior-Blue Inferior-Green Anterior-Skin surface/[place] Posterior/Deep-Black Lateral-Yellow Medial-Red . Sectioned from: lateral to medial Number of slices: 14 with slice 1 as lateral Lesion: Kelly-white indurated unencapsulated 2.5 x 2 x 1.1, at 9 o'clock position 8 cm from nipple and closest to the (0.4 cm from the black inked) posterior margin Lesion location: Slices 3-5 . Lesion to margins: superior 5.1 cm inferior 7.8 cm anterior 3.8 cm posterior 0.4 cm lateral 3 cm medial 20 cm . Biopsy clip: Not identified . Cut surface: fibrofatty (85% and fibrous 15%) . Dough Sheeter sections of specimen are submitted in 15 cassettes B1 shaved base of nipple B2 remainder of nipple perpendicularly sectioned and incidental skin papules averaging 0.8cm B3 Lesion with closest black posterior margin B4 Lesion with closest yellow inked lateral, additional B5-11 Additional Lesion B12 [place] [address] PATHOLOGY RPT PROCEDURE Name: ROMANA JHA [address]: [address] [id number] Admission: 08/16/20 Date of : 40 Discharge: 08/17/20 Report #: [id number] Path Case #: [id number] B13 Random LOQ B14 Random LIQ B15 Random UIQ . The specimen is removed from the patient at 1212 hours and placed in formalin at 1251 hours on Sunday, August 16, 2020. The specimen is removed from formalin at 11:30pm on August 17. The specimen is in formalin for greater than 6 hours and less than 72 hours. . C. The specimen is received in formalin, labeled "Romana Jha, right axillary tail short superior long lateral" is an 8 x 5.5 x 2.5 cm fragment of tissue oriented with a short stitch at superior and long stitch at lateral. The specimen is palpated and a few nodular areas possibly consistent with lymph nodes measuring up to 0.5 cm are identified. Entirely sequentially submitted lateral to medial with nodular areas in C1 and C2 with remainder of specimen submitted C3-C15 with most medial aspect in C15. . The specimen is removed from the patient at 1212 hours and placed in formalin at 1240 hours on Sunday, August 16, 2020. The specimen is removed from formalin at 11:30pm on August 17. The specimen is in formalin for greater than 6 hours and less than 72 hours. . D. The specimen is received in formalin, labeled "Romana Jha, right axillary lymph node dissection short superior long lateral" is a 6.5 x 6 x 2.5 cm aggregate of fibrofatty tissue of varying consistency oriented with a short stitch at superior and long stitch at lateral. Multiple soft pink-holley possible lymph nodes ranging from 0.2-1.8 cm in diameter are identified and entirely submitted along with loan servicing representative sections of the surrounding fatty tissue D1-D20. D1-3 lymph nodes D2-one lymph node D3-one lymph node D4-one lymph node D5-one lymph node D6-one lymph node, largest U3-B99-bydmyjvteb loan servicing representative tissue containing possible minute lymph nodes . The specimen is removed from the patient at 1311 hours and placed in formalin at 1314 hours on Sunday, August 16, 2020. The specimen is removed from formalin at 11:30pm on August 17. The specimen is in formalin for greater than 6 hours and less than 72 hours. ([facility] 08/17/20) LEYLA/LEYLA 08/19/2020 [facility] Local . 02 Pathologist provided ICD-10: N62, N60.42, L82.1, N60.31 . 02 [place] [address] PATHOLOGY RPT PROCEDURE Name: ROMANA JHA Room: [address] Sushant Murdock#: [id number] Admission: 08/16/20 Date of : 40 Discharge: 08/17/20 Report #: [id number] Path Case #: [id number] CPT . 467669, [id number], [id number], [id number] Specimen Comment: A courtesy copy of this report has been sent to [phone] Specimen Comment: [phone] Specimen Comment: Report sent to / DR MACHADO Performed at: [address], [place], [place] [id number] MD Arnel Duong MD Phone: [phone] Performed at: [facility] [address], [place], [place] [id number] MD Adrian Mcdonald MD Phone: [phone]
== END 2020-08-17 14:10 | disposition home health service (06) ==
LOC: M.PRE 04:26 → M.TBA 08:30 → M.PRE 15:26 → M.ORTHSURG 17:01
PROVIDERS: ADMIT Surgery; ATTEND Surgery
DX: C50.911 Malignant neoplasm of unspecified site of right female breast (principal); C50.912 Malignant neoplasm of unspecified site of left female breast; E03.9 Hypothyroidism, unspecified; J45.909 Unspecified asthma, uncomplicated; M81.0 Age-related osteoporosis without current pathological fracture; Z79.899 Other long term (current) drug therapy; Z20.822 Contact with and (suspected) exposure to COVID-19

== ENCOUNTER → 2020-10-04 | Outpatient (CLI) | payer MEDICARE, OTHER ==
[~2020-10-04] MED LIST changes: +TRAMADOL 50 MG50 MG PO
== END ==
LOC: M.ULTRA 14:30
PROVIDERS: ATTEND Radiology Radiation Oncology
DX: R22.42 Localized swelling, mass and lump, left lower limb (principal)

== ENCOUNTER → 2021-04-19 | Outpatient (CLI) | payer MEDICARE, OTHER | LOC: M.RAD 09:00 | PROVIDERS: ATTEND Family Medicine | DX: M81.0 Age-related osteoporosis without current pathological fracture (principal); M85.88 Other specified disorders of bone density and structure, other site; Z78.0 Asymptomatic menopausal state ==